=== PATIENT | female | born 1990 | race Two or more races ===

== ENCOUNTER 2020-04-12 15:09 | Outpatient (REF) | payer OTHER, SELFPAY ==
[2020-04-12 15:45] LABS: COVID-19 Test Negative (Negative)
== END 2020-04-12 15:10 | disposition home or self-care (01) ==
LOC: HO.LAB 15:09
PROVIDERS: Visit Provider Internal Medicine
DX: Z20.828 Contact with and (suspected) exposure to other viral communicable diseases (principal)
CPT/HCPCS: 87635; C9803

== ENCOUNTER → 2020-10-31 13:52 | Outpatient (BNVA) | payer OTHER, SELFPAY | PROVIDERS: PCP Internal Medicine; Referring Provider Internal Medicine; Visit Provider Internal Medicine Endocrinology, Diabetes & Metabolism | DX: E66.01 Morbid (severe) obesity due to excess calories (principal) | CPT/HCPCS: 99202 ==

== ENCOUNTER 2020-11-01 08:23 | Outpatient (REF) | payer OTHER, SELFPAY ==
[2020-11-01 09:37] LABS: Alanine Aminotransferase 31 U/L (0-31); Albumin Level 4.3 g/dL (3.5-5.0); Alkaline Phosphatase 62 U/L (39-117); Anion Gap 10 (12-20); Aspartate Amino Transferase 21 U/L (5-31); Bilirubin Total 0.6 mg/dL (0.0-1.0); Blood Urea Nitrogen 11 mg/dL (9-16); Calcium 8.9 mg/dL (8.4-10.2); Carbon Dioxide 27 mmol/L (22-29); Chloride 106 mmol/L (96-108); Cholesterol 233 mg/dL; Estimated Glomerular Filt Rate > 60; Glucose Fasting 104 mg/dL (60-99); HDL Cholesterol 44 mg/dL; LDL Cholesterol Calculated 162 mg/dl; Potassium 4.3 mmol/L (3.3-5.1); Sodium 139 mmol/L (135-145); Total Protein 7.2 g/dL (6.5-8.0); Triglycerides 137 mg/dL
[2020-11-01 09:59] LABS: Free T4 (Free Thyroxine) 0.86 ng/dL (0.71-1.85); Thyroid Stimulating Hormone 0.75 uIU/mL (0.32-4.0)
[2020-11-01 10:01] LABS: Estimated Average Glucose 103 mg/dL; Hemoglobin A1c % 5.2 %
[2020-11-04 22:46] LABS: Adrenocorticotropic Hormone 25 pg/mL (6-50)
== END 2020-11-01 08:24 | disposition home or self-care (01) ==
LOC: HO.LAB 08:23
PROVIDERS: PCP Internal Medicine; Visit Provider Internal Medicine Endocrinology, Diabetes & Metabolism
DX: E66.01 Morbid (severe) obesity due to excess calories (principal)
CPT/HCPCS: 36415; 80053; 80061; 82024; 82306; 82533; 83036; 83525; 84439; 84443

== ENCOUNTER 2020-11-07 07:43 | Outpatient (REF) | payer OTHER, SELFPAY ==
[2020-11-11 19:12] LABS: Adrenocorticotropic Hormone <5 pg/mL (6-50)
[2020-11-13 16:02] LABS: Dexamethasone 232 ng/dL
[2020-11-14 20:02] LABS: Saliva Cortisol <0.03 mcg/dL
== END 2020-11-07 07:44 | disposition home or self-care (01) ==
LOC: HO.LAB 07:43
PROVIDERS: PCP Internal Medicine; Visit Provider Internal Medicine Endocrinology, Diabetes & Metabolism
DX: E66.01 Morbid (severe) obesity due to excess calories (principal)
CPT/HCPCS: 36415; 80299; 82024; 82530; 82533

== ENCOUNTER → 2020-11-29 09:14 | Outpatient (BNVA) | payer OTHER, SELFPAY | PROVIDERS: PCP Internal Medicine; Visit Provider Internal Medicine Endocrinology, Diabetes & Metabolism | DX: E66.01 Morbid (severe) obesity due to excess calories (principal); E55.9 Vitamin D deficiency, unspecified; Z68.41 Body mass index [BMI] 40.0-44.9, adult | CPT/HCPCS: 99212 ==

== ENCOUNTER 2025-04-13 14:23 | Outpatient (REF) | payer OTHER, SELFPAY ==
[2025-04-13 22:53] LABS: Bacterial Vaginosis PCR NEGATIVE (Negative); Candida Group PCR NOT DETECTED (Not Detect); Candida glab krusei PCR NOT DETECTED (Not Detect); Trichomonas vaginalis PCR NOT DETECTED (Not Detect)
[2025-04-13 23:24] LABS: CT PCR NOT DETECTED (Not Detect.); NG PCR NOT DETECTED (Not Detect.)
== END 2025-04-13 14:24 | disposition home or self-care (01) ==
LOC: HO.LNP 14:23
PROVIDERS: PCP Internal Medicine; Visit Provider Advanced Practice Midwife
DX: Z01.419 Encounter for gynecological examination (general) (routine) without abnormal findings (principal); Z30.09 Encounter for other general counseling and advice on contraception; Z11.51 Encounter for screening for human papillomavirus (HPV); Z85.72 Personal history of non-Hodgkin lymphomas; Z20.2 Contact with and (suspected) exposure to infections with a predominantly sexual mode of transmission
CPT/HCPCS: 81515; 87491; 87591; 87626; 88175; 99385

== ENCOUNTER 2025-04-13 14:23 | Outpatient (AMB) | payer OTHER, SELFPAY ==
--- NOTE | 2025-04-13 14:24 | A.OFFVIS_ITS ---
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 She used to go to [place]. She had her 1st baby as a for a long prolonged labor that did not proceed and her 2nd was a repeat . She had an IUD placed immediately during the C- section and she had some sort of reaction on her on the she did not feel good about so she had the IUD removed at her visit. The delivery had occurred at [facility]. She has history of lymphoma that occurred after her and then she had a 9 month course of chemotherapy. She said she was told there was a chance that she would be infertile afterwards and she was given an opportunity to freeze her eggs which she declined. After the chemotherapy she ended up with chemotherapy induced Congestive heart failure which seems to be stable now and is monitored by physicians in [place]. She has been with the same partner for many many years and has not gotten and is not contraceptive thing she has considered getting her tubes tied but she is not interested in any temporary method of control. Also she had bariatric surgery the gastric sleeve and lost a lot of the weight that she had gained during the chemotherapy. [facility] Medical History (Updated 04/13/25 @ 16:00 by Aaliyah Jimenes CNM) CHF (congestive heart failure) Vitamin D deficiency Morbid obesity Surgical History (Updated 04/13/25 @ 14:25 by Susan Clifton MA) H/O gastric sleeve Hx of section Family History Father Healthy adult Mother Healthy adult Social History (Updated 10/31/20 @ 13:59 by REBECCA Rojas) Patient Tobacco Use Status: Never used Tobacco Female Reproductive History Menstrual Age of Menarche: 11 Duration of menses: 6-7 days Date of last menstrual period: 03/22/25 control method: none Total pregnancies: 4 Full term: 2 History of abnormal pap smear: No Physical Exam Const General: healthy appearing, comfortable, no acute distress, well developed and alert Nutritional Appearance: average body habitus Orientation/consciousness: patient oriented x3 Limitations: no limitations HEENT Head: Yes normocephalic Neck Neck: Yes normal visual inspection Chest Chest palpation & inspection: normal inspection of the chest Breast/axilla inspection: normal inspection of the breasts and normal inspection of the axillae Breast/axilla palpation: normal palpation of the breasts and normal palpation of the axillae Resp Effort & Inspection: normal respiratory effort GI Inspection: Yes normal to inspection, No Abdominal wall edema and No distended Palpation (GI): Soft to palpation and nontender Other: External exam within normal limits vagina is pink and moist nulliparous pink cervix is tightly closed normal scant whitish discharge no abnormal discharge whatsoever cervix is midposition pointing downward uterus small anteverted mobile nontender adnexa nontender no organomegaly good tone with Kegel. General: Yes bladder normal to palpation External Female Exam: normal external appearance and normal appearance of the urethra Speculum Exam - Vagina: normal appearance of the vagina, normal palpation and normal vaginal discharge Speculum Exam - Cervix: normal appearance of the cervix, normal palpation and nontender Bimanual exam- vagina & uterus: normal bimanual exam, normal palpation, uterine size normal, bladder normal to palpation, consistency normal, normal palpation, uterine mobility normal, uterine shape normal, No Cervical tenderness present, non-tender and no cervical motion tenderness Bimanual Exam- Adnexa, other: normal adnexae, no masses, normal and No adnexal tenderness Neuro General: patient oriented x3 Assessment & Plan Assessment & Plan (1) Well woman exam with routine gynecological exam: Code(s): Z01.419 - Encounter for gynecological examination (general) (routine) without abnormal findings Category: Medical (2) Screening for malignant neoplasm of cervix: Comment: History of abnormals did have lymphoma in 2017 2018, negative Pap in 2021. Pap done 04/13/2025. Code(s): Z12.4 - Encounter for screening for malignant neoplasm of cervix Category: Medical (3) Encounter for screening examination for sexually transmitted disease: Code(s): Z11.3 - Encounter for screening for infections with a predominantly sexual mode of transmission Category: Medical (4) control counseling: Code(s): Z30.09 - Encounter for other general counseling and advice on contraception Category: Medical (5) Hx of lymphoma: Comment: 2018 to 2019 had 9 months of chemotherapy, she has the Congestive heart failure resulting from the chemo. Is now 5 years clear getting yearly CAT scan. Code(s): Z85.72 - Personal history of non-Hodgkin lymphomas Category: Medical Plan -----Discussed in this visit the following: healthy balanced diet, regular and consistent exercise, getting recommended health screens, doing the best she can for her particular health concerns, kegel exercises, pap smear screening and followup recommendations, mammography screening and SBE, normal changes in cycles in her life stage--- . She is now 5 years out from her lymphoma so now she gets yearly CAT scans. We discussed options for control including fertility awareness she is aware of symptoms of ovulation and does have them. I did review with her options for long-term control that would be short of a tubal ligation including the IUDs both the Mirena and the medication free ParaGard IUD. She said her periods were heavier before her chemotherapy but have been shorter and not as heavy since then. Explained the ParaGard IUD in some detail she is not particularly interested but accepted the information. We will let her know if there any abnormal and we will let her know the results of the Pap smear. If she ever did want to discuss getting her tubes tied she would need to make an appointment with a wedding day coordinator to discuss surgery discussed that options for other methods other than surgery would probably be offered again as they would present lower risk then a surgical risk . RTC 1 year or PRN. Orders: Orders HPV High risk Today Z01.419 - Encounter for gynecological examination (general) (routine) without abnormal findings Bacterial Vaginosis Panel Today Z01.419 - Encounter for gynecological examination (general) (routine) without abnormal findings Pap Smear Today Z01.419 - Encounter for gynecological examination (general) (routine) without abnormal findings CT NG by PCR Vag/Cerv Today Z01.419 - Encounter for gynecological examination (general) (routine) without abnormal findings Coding Level of Care Code New Pt Prev Care [id number] Diagnoses Well woman exam with routine gynecological exam Z01.419 Screening for malignant neoplasm of cervix Z12.4 Encounter for screening examination for sexually transmitted disease Z11.3 control counseling Z30.09 Hx of lymphoma Z85.72
[2025-04-13 14:29] VITALS: BP 110/70; BMI 28.0
--- OUTSIDE RECORDS SUMMARY | 2025-04-13 14:44 | XMS_ITS ---
Author Name [facility] Organization Unknown Care Team Organization Name Specialty Phone Email Start Date End Da te [facility] 03/31/2022 01/10/2024
--- OUTSIDE RECORDS SUMMARY | 2025-04-13 14:44 | XMS_ITS | Clinical Summary ---
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 20 tablet 3 02/27/2021 Active lisinopril (PRINIVIL,ZESTRIL) tablet 5 mg TAKE 1 TABLET BY MOUTH EVERY DAY 30 tablet 1 06/23/2021 Active furosemide (LASIX) 20 MG tablet TAKE 1 TABLET BY MOUTH EVERY DAY 30 tablet 1 07/22/2021 Active carvedilol (COREG) 3.125 MG tablet Take 1 tablet (3.125 mg total) by mouth 2 (two) times a day with meals. 0 Active thiamine mononitrate (VITAMIN B-1) 100 MG tablet Take 1 tablet (100 mg total) by mouth daily. 0 Active LORazepam (ATIVAN) 0.5 MG tablet TAKE 1 TABLET BY MOUTH TWICE A DAY NEEDED FOR ANXIETY 30 tablet 0 05/25/2023 Active ergocalciferol (VITAMIN D2) capsule 30389 units Take 1 capsule (50,000 Units total) by mouth once a week. 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 Cancer Staging:Clinical stage from 11/10/2018:Stage III(Hodgkin lymphoma, B - Symptoms) - Signed by Paula Gray MD on 03/05/2019 Vitamin D deficiency 05/31/2018 Social History Tobacco Use Types Packs/Day Years Used Date Smoking Tobacco: Never Smokeless Tobacco: Never Alcohol Use Standard Drinks/Week Comments No 0 (1 standard drink = 0.6 oz pur e alcohol) Sex and Gender Information Value Date Recorded Sex Assigned at Not on file Gender Identity Not on file Sexual Orientation Not on file Job Start Date Occupation Industry Not on file Not on file Not on file Last Filed Vital Signs Vital Sign Reading Time Taken Comments Blood Pressure 118/67 12/20/2023 9:24 AM EDT Pulse 75 12/20/2023 9:24 AM EDT Temperature 36.3 C (97.4 F) 12/20/2023 9:24 AM EDT Respiratory Rate 16 12/08/2018 11:46 AM EDT Oxygen Saturation 98% 12/20/2023 9:24 AM EDT Inhaled Oxygen Concentration - - Weight 73.5 kg (162 lb) 12/20/2023 9:24 AM EDT Height 154.9 cm (5' 1 ) 12/20/2023 9:24 AM EDT Body Mass Index 30.61 12/20/2023 9:24 AM EDT Plan of Treatment Health Maintenance Due Date Last Done Comments Hepatitis B Vaccines (1 of 3 - 3-dose series) 1989 Hepatitis C Screening 1989 COVID-19 Vaccine (#1) 1994 Pneumococcal Vaccine (1 of 2 - PCV) 1995 Depression Screening 2001 BMI Counseling 2007 Preventative Health Evaluation 2007 Cervical Cancer Screening (Pap Smear) 2010 DTap / Tdap / Td (3 - Td or Tdap) 11/13/2024 11/13/2014, 07/27/2012 Influenza Vaccine (#1) 2025 , 04/18/2020, 03/24/2018, Additional history exists RSV Ped < 20 months Aged Out No longe r eligible based on patient's age to complete this topic Care Teams 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
--- OUTSIDE RECORDS SUMMARY | 2025-04-13 14:44 | XMS_ITS | Clinical Summary ---
Author Organization [facility] [address] [place] [address] [place] [phone] Phone Care Team Providers Care Leather Goods Maker Name Role Phone Belle Damon MD Primary Care Provider [phone] Allergies No known active allergies Medications LORazepam (ATIVAN) 0.5 mg tablet Take 1 tablet (0.5 mg total) by mouth 2 (two) times a day if needed for anxiety. 05/25/19 24 Active ondansetron (ZOFRAN) 8 mg tablet Take 1 tablet (8 mg total) by mouth every 8 hours as needed for nausea. 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 36 tablet 3 01/25/20 25 Active tirzepatide, weight loss, (Zepbound) 10 mg/0.5 mL injectionIndi cations:Overw eight (BMI 25.0-29.9) INJECT 0.5 MLS SUBCUTANEOUSLY UNDER THE SKIN EVERY 7 DAYS 2 mL 2 04/02/20 25 Active cholecalcifer ol (Vitamin D3) 50 mcg (2,000 unit) capsule Take 1 capsule (2,000 Units total) by mouth 1 (one) time each day. 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) 0 10/04/2024 Leg cramps 04/22/2022 Decreased cardiac ejection fraction 02/27/2021 Hyperlipidemia 10/31/2019 Plantar fasciitis 09/22/2019 Acute midline low back pain without sciatica 08/2018 Anxiety 03/13/2019 Drug-induced polyneuropathy ([facility] V24) 2018 Weight gain 03/13/2019 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 ([facility] V24, [facility] V28) 11/28/2018 Vitamin D deficiency 05/31/2018 Assessment & Plan (06/02/2024 4:50 PM EST): Orders: Vitamin D 25 hydroxy; Future Immunizations Immunization Administration Dates Next Due Influenza Quadravalent, MDCK , 0.5ml, preservative free (Flucelvax) 6mo and older 03/17/2023 Influenza Quadravalent, MDCK , 0.5ml, with preservative (Flucelvax) 6mo and older 03/02/2024,02/26/2022 Influenza Quadrivalent, 0.5m l, preservative free (Fluarix; FluLaval; Fluzone) ages 6mo and older (Afluria) 3yo and older 04/18/2020,03/24/2018,02/18/2016 Influenza trivalent, 0.5mL, preservative free (Fluarix; FluLaval; Fluzone) ages 6mo and older (Afluria) 3 years and older 03/03/2017 PPD Test 09/21/2018, 6,08/08/2014,2013,07/27/2012 Tdap Tetanus diptheria acell ular pertussis (Boostrix; Adacel) 7yo and older 11/13/2014,07/27/2012 Surgical History Surgery Date Site/Laterality Comments SECTION PROCEDURE: SECTION Medical History Medical History Date Comments Anemia DX:Anemia Family History Medical History Relation Name Comments Diabetes Maternal Grandfather Diabetes Maternal Grandmother Diabetes Paternal Grandfather Diabetes Paternal Grandmother Relation Name Status Comments Maternal Grandfather Maternal Grandmother Paternal Grandfather Paternal Grandmother Social History Tobacco Use Types Packs/Day Years Used Date Smoking Tobacco: Never Smokeless Tobacco: Never Tobacco Cessation:Counseling Given: Not Answered Alcohol Use Standard Drinks/Week Comments Yes 0 (1 standard drink = 0.6 oz pur e alcohol) Socially Housing Instability Answer Date Recorde d Are you worried that in the next 2 months you may not have stable housing? No 06/01/2024 Food Access & Nutrition Answer Date Rec orded Do you have access to a vari ety of food including fruits and vegetables? Yes 06/01/2024 Health Literacy Answer Date Recorded How often do you need to hav e someone help you when you read instructions, pamphlets, or other written material from your doctor or pharmacy? Never 06/01/2024 Caregiver: How often do you need to have someone help you when you read instructions, pamphlets, or other written material from your doctor or pharmacy? Not on file 06/01/2024 Financial Risk Answer Date Recorded How hard is it for you to pa y for the very basics like food, housing, medical care, and air conditioning / heating? Not very hard 06/01/2024 Transportation Answer Date Recorded Has the lack of transportati on kept you from meetings, work, or from getting things needed for daily living? No Has the lack of transportati on kept you from medical appointments or from getting medications? No 06/01/2024 Social Isolation Answer Date Recorded How often do you feel lonely or isolated from th ose around you? Never 06/01/2024 Food Risk Answer Date Recorded Within the past 12 months we worried whether our food would run out before we got money to buy more. Never true 06/01/2024 Within the past 12 months th e food we bought just didn't last and we didn't have money to get more. Never true 06/01/2024 Dependent Care Answer Date Recorded Do you need help finding or paying for care for your loved ones. For example, children's tutor nursery or elderly care for an older adult? No 06/01/2024 Education Answer Date Recorded Do you think completing more education or training, like finishing a GED, going to college, or learning a trade, would be helpful for you? No 06/01/2024 Employment and Income Answer Date Recor ded During the last four weeks, have you been actively looking for work? No 06/01/2024 Living Situation Answer Date Recorded What is your living situation? Unrecognized valu e 06/01/2024 Comments No Sex and Gender Information Value Date Recorded Sex Assigned at Female 07/12/2024 9:02 AM EST Legal Sex Female 10:57 PM EST Gender Identity Female 07/12/2024 9:02 AM EST Sexual Orientation Not on file Obstetrics History Last Filed Vital Signs Vital Sign Reading Time Taken Comments Blood Pressure 114/77 12/13/2024 2:10 PM EDT Pulse 73 12/13/2024 2:10 PM EDT Temperature 36.7 C (98 F) 08/14/2024 9:25 AM EDT Respiratory Rate 14 06/01/2024 4:33 PM EST Oxygen Saturation 98% 10/04/2024 1:11 PM EDT Inhaled Oxygen Concentration - - Weight 72.5 kg (159 lb 12.8 oz) 12/13/2024 2:10 PM EDT Height 160 cm (5' 3 ) 12/13/2024 2:10 PM EDT Body Mass Index 28.31 12/13/2024 2:10 PM EDT Plan of Treatment Upcoming Encounters Date Type Department Care Team (Late st Contact Info) Description 04/24/2025 8:40 AM EST Office Visit [facility] [address] [place] [phone] Chuyita Pitts NP [address] [place] [address] [place] [address] 04/24/2025 9:15 AM EST Office Visit [facility] - [place] [address] [place] [address] Valerie Clark, BEE [address] [place] [phone] 08/15/2025 11:30 AM EDT Office Visit [facility] Hematology Oncology [address] [place] [address] Paula Cabello MD [address] [place] [address] Health Maintenance Due Date Last Done Comments Hepatitis B Vaccines (1 of 3 - 19+ 3-dose series) 01/25/2008 Pneumococcal Vaccine: Pediatrics (0 to 5 Years) and At-Risk Patients (6 to 49 Years) (1 of 2 - PCV) 01/25/2008 HPV Vaccines (1 - Risk 3-dose SCDM series) 01/25/2016 Cervical Cancer Screening: Pap Smear 07/01/2021 07/01/2018 COVID-19 Vaccine ( season) 2025 12/01/2021, 02/07/2021, 01/10/2021 Influenza Vaccine (#1) 2025 , 03/17/2023, 02/26/2022, Additional history exists DTaP,Tdap,and Td Vaccines (3 - Td or Tdap) 05/24/2025 11/13/2014, 07/27/2012 Postponed from 11/13/2024 (Patient Refused) Social Influencers of Health Screening 06/01/2025 06/01/2024 Hypertension/CHF/CAD Annual BMP Blood Test 12/13/2025 12/13/2024, 06/02/2024, 09/27/2023 Cholesterol Screening (Lipid Panel) 06/02/2029 06/02/2024 RSV Immunization Adult Patients (1 - 1-dose 75+ series) 01/25/2064 Depression Screening Completed 06/01/2024 HIV Screening Completed 06/02/2024 Hepatitis C Screening Completed 06/02/2024 HIB Vaccines Aged Out No longer eligi ble based on patient's age to complete this topic Hepatitis A Vaccines Aged Out No long er eligible based on patient's age to complete this topic IPV Vaccines Aged Out No longer eligi ble based on patient's age to complete this topic MMR Vaccines Aged Out No longer eligi ble based on patient's age to complete this topic Meningococcal ACWY Vaccine Aged Out N o longer eligible based on patient's age to complete this topic Meningococcal B Vaccine Aged Out No l onger eligible based on patient's age to complete this topic RSV Immunization Patients Under 20 months Aged Out No longer eligible based on patient's age to complete this topic Varicella Vaccines Aged Out No longer eligible based on patient's age to complete this topic Procedures Procedure Name Priority Date/Time Associated Diagnosis Comments COMPREHENSIVE METABOLIC PANEL Routine 12/13/2024 2:41 PM EDT Overweight (BMI 25.0-29.9) HEPATITIS C ANTIBODY Routine 06/02/2024 9:28 AM EST Screen for STD (sexually transmitted disease) HIV 1, 2 ANTIBODY, P24 ANTIGEN WITH REFLEX TO DIFFERENTIATION Routine 06/02/2024 9:28 AM EST Screen for STD (sexually transmitted disease) LIPID PANEL WITH REFLEX TO DIRECT LDL Routine 06/02/2024 9:28 AM EST PE (physical exam), annual PAP SMEAR Routine 07/01/2018 from Last 3 Months or Most Recently Relevant to Health Maintenance Results * Comprehensive metabolic panel (12/13/2024 2:41 PM EDT) Sodium 139 133 - 145 mmol/L LAB CHEMISTRY METHOD 12/13/2024 6:59 PM EDT [facility] Potassium 4.1 3.5 - 5.5 mmol/L LAB CHEMISTRY METHOD 12/13/2024 6:59 PM T [facility] Chloride 105 96 - 110 mmol/L LAB CHEMISTRY METHOD 12/13/2024 6:59 PM [facility] CO2 31 21 - 32 mmol/L LAB CHEMISTRY METHOD 12/13/2024 6:59 PM [facility] Anion Gap 3 3 - 11 LAB CHEMISTRY METHOD 12/13/2024 6:59 PM T [facility] Glucose 74 70 - 100 mg/dL LAB CHEMISTRY METHOD 12/13/2024 6:59 PM [facility] BUN 13 5 - 25 mg/dL LAB CHEMISTRY METHOD 12/13/2024 6:59 PM [facility] Creatinine 0.76 0.50 - 1.10 mg/dL LAB CHEMISTRY METHOD 12/13/2024 6:59 PM [facility] eGFR 105 >=60 mL/min/1. 73m2 LAB CHEMISTRY METHOD 12/13/2024 6:59 PM [facility] Comment:Calculation based on the Chronic Kidney Disease Epidemiology Collaboration (CKD-EPI) equation refit without adjustment for race. BUN/Creatinine Ratio 17.1 LAB CHEMISTRY METHOD 12/13/2024 6:59 PM [facility] Calcium 9.0 8.5 - 10.5 mg/dL LAB CHEMISTRY METHOD 12/13/2024 6:59 PM [facility] AST (SGOT) 13 10 - 42 unit/L LAB CHEMISTRY METHOD 12/13/2024 6:59 PM [facility] ALT (SGPT) 18 10 - 60 unit/L LAB CHEMISTRY METHOD 12/13/2024 6:59 PM [facility] Alkaline Phosphatase 47 42 - 121 unit/L LAB CHEMISTRY METHOD 12/13/2024 6:59 PM [facility] Total Protein 7.2 6.0 - 8.0 g/dL LAB CHEMISTRY METHOD 12/13/2024 6:59 PM [facility] Albumin 4.1 3.2 - 5.0 g/dL LAB CHEMISTRY METHOD 12/13/2024 6:59 PM [facility] Total Bilirubin 0.4 0.0 - 1.4 mg/dL LAB CHEMISTRY METHOD 12/13/2024 6:59 PM [facility] Blood Venous blood specimen / Unknown Venipuncture / Unknown 12/13/2024 2:41 PM EDT 12/13/2024 2:41 PM EDT Valerie GAMBOA LAB BLOOD ORDERABLES Final R esult Performing Organization Address [facility]/ZIP Co de Phone Number [facility] [address] [place] [address], [place] [phone] * Hepatitis C antibody (06/02/2024 9:28 AM EST) Hepatitis C Antibody Negative Negative LAB CHEMISTRY METHOD 06/02/2024 1:11 PM EST [facility] Blood Venous blood specimen / Unknown Venipuncture / Unknown 06/02/2024 9:28 AM EST 06/02/2024 9:28 AM EST Belle Damon MD LAB BLOOD ORDERABLES Final Resul t Performing Organization Address [facility] de Phone Number [facility] [address] [place] [address], [place] [phone] * HIV 1,2 antibody, p24 antigen with reflex to differentiation (06/02/2024 9:28 AM EST) [facility] HIV Combo AB/AG Negative Negative LAB CHEMISTRY METHOD 06/02/2024 1:11 PM EST [facility] Blood Venous blood specimen / Unknown Venipuncture / Unknown 06/02/2024 9:28 AM EST 06/02/2024 9:28 AM EST Narrative [facility] - 06/02/2024 1:11 PM EST This assay is a 4th generation assay allowing for earlier detection of HIV infection by detecting the presence of the HIV-1 p24 antigen as well as the traditional antibodies to HIV type 1 (including group O) and type 2. Use of a 4th generation assay is the current CDC recommendation for HIV screening. us Belle Damon MD LAB BLOOD ORDERABLES Final Resul t Performing Organization Address [facility]/ZIP Co de Phone Number [facility] [address] [place] [address], [place] [phone] * (ABNORMAL) Lipid panel with reflex to direct LDL (06/02/2024 9:28 AM EST) Cholesterol 251(H) 0 - 200 mg/dL LAB CHEMISTRY METHOD 06/02/2024 12:23 PM EST [facility] Triglycerides 79 0 - 150 mg/dL LAB CHEMISTRY METHOD 06/02/2024 12:23 PM EST [facility] HDL 58 >=40 mg/dL LAB CHEMISTRY METHOD 06/02/2024 12:23 PM EST [facility] LDL Calculated 177(H) 0 - 100 mg/dL LAB CHEMISTRY METHOD 06/02/2024 12:23 PM [facility] VLDL Cholesterol Kalyan 15.8 mg/dL LAB CHEMISTRY METHOD 06/02/2024 12:23 PM EST [facility] Non HDL Chol. (LDL+VLDL) 193(H) <145 mg/dL LAB CHEMISTRY METHOD 06/02/2024 12:23 PM EST [facility] Chol/HDL Ratio 4.3 0.0 - 4.4 LAB CHEMISTRY METHOD 06/02/2024 12:23 PM EST [facility] Blood Venous blood specimen / Unknown Venipuncture / Unknown 06/02/2024 9:28 AM EST 06/02/2024 9:28 AM EST us Belle Damon MD LAB BLOOD ORDERABLES Final Resul t [facility] [address] [place] [address], [place] [phone] * Pap smear (07/01/2018) 07/01/2018 Narrative HISTORICAL TESTING LAB RESULTING AGENCY - 07/06/2018 4:00 PM EST [id number] THINPREP PAP, IMAGED: NEGATIVE FOR SQUAMOUS INTRAEPITHELIAL LESION AND MALIGNANCY . ADELSO RICHEY(ASCP) (CASE ELECTRONICALLY SIGNED 07 06 2018) RESULT OF APTIMA HIGH RISK HPV ASSAY: HIGH RISK HPV: NEGATIVE (SEROTYPES 16,18,31,33,35,39,45,51,52,56,58,59,66,68) COMPLETED ON 2018-07-05 ADEQUACY: SATISFACTORY ENDOCERVICAL/TRANSFORMATION ZONE COMPONENT PRESENT. SOURCE: THINPREP PAP HPV ANY DX: REFLEX 16 AND 18, CERVICAL, IMAGED CLINICAL INFORMATION: HPV ANY DIAGNOSIS. PAP HX NEG, Z12.4 Jeri IRVING LAB CYTOLOGY ORDERABLES Final R esult HISTORICAL TESTING LAB RESULTING AGENCY from Last 3 Months or Most Recently Relevant to Health Maintenance Insurance [facility] [employer] Care Teams Leather Goods Maker Relationship Specialty Start Date End Date Belle Damon MD [address] [place] [phone] PCP - General Internal Medicine 03/23/24
== END 2025-04-17 09:55 | disposition home or self-care (01) ==
LOC: HO.HWSM 14:23
PROVIDERS: PCP Internal Medicine; Visit Provider Advanced Practice Midwife
DX: Z01.419 Encounter for gynecological examination (general) (routine) without abnormal findings (principal); Z11.3 Encounter for screening for infections with a predominantly sexual mode of transmission; Z30.09 Encounter for other general counseling and advice on contraception; Z85.72 Personal history of non-Hodgkin lymphomas
CPT/HCPCS: 99385; 99459